=== PATIENT | female | born 1980 | race Caucasian/White ===

== ENCOUNTER → 2023-09-29 06:29 | Outpatient (CLI) | payer OTHER ==
[~2023-09-29 06:29] MED LIST: [UNRECOGNIZED DRUG - OTHER] PO
[2023-09-29 07:55] LABS: HEMATOCRIT 35.8 % (36.0-45.00); HEMOGLOBIN 12.4 g/dL (12.0-15.00); MEAN CELL VOLUME 96.6 fL (80.00-100.00); MEAN CORPUSCULAR HEMOGLOBIN 33.5 pg (27.00-32.0); MEAN CORPUSCULAR HGB CONC 34.7 g/dl (32.0-36.0); PLATELET COUNT 304 K/uL (150-450); RED BLOOD COUNT 3.71 M/uL (4.00-6.00); RED CELL DISTRIBUTION WIDTH 12.7 % (11.5-14.5)
[2023-09-29 09:03] LABS: ALBUMIN 3.7 gm/dL (3.4-5.0); BILIRUBIN TOTAL 0.22 mg/dL (0.3-1.2); CALCIUM 9.5 mg/dL (8.5-10.1); CHOL HDL RATIO 3.1 (0-5.0); CREATININE SERUM 0.64 mg/dL (0.55-1.02); GFR 101.76; GLOBULINA 3.3 G/DL (2.4-3.5); POTASSIUM 4.28 mEq/L (3.5-5.1); T4 TOTAL 10.74 UG/DL (4.8-13.9); TSH 0.761 uIU/mL (0.358-3.74)
== END | disposition home or self-care (01) ==
LOC: LAB 06:29
PROVIDERS: ATTEND Internal Medicine Gastroenterology
DX: K30 Functional dyspepsia (principal); Z12.11 Encounter for screening for malignant neoplasm of colon; K21.9 Gastro-esophageal reflux disease without esophagitis; Z13.228 Encounter for screening for other metabolic disorders; R10.13 Epigastric pain

== ENCOUNTER 2023-09-29 07:19 | Outpatient (CLI) | payer OTHER | END 2023-09-29 07:21 | disposition home or self-care (01) | LOC: SONOGRAMA 07:19 | PROVIDERS: ATTEND Internal Medicine Gastroenterology | DX: R10.13 Epigastric pain (principal) ==

== ENCOUNTER 2024-11-18 12:52 | Outpatient (CLI) | payer OTHER ==
[~2024-11-18 12:52] MED LIST changes: +NORFLEX100MG PO
== END 2024-11-18 12:59 | disposition home or self-care (01) ==
LOC: MRI 12:52
PROVIDERS: ATTEND Physical Medicine & Rehabilitation
DX: M54.42 Lumbago with sciatica, left side (principal)
CPT/HCPCS: 72148

== ENCOUNTER 2024-12-10 07:42 | Outpatient (CLI) | payer OTHER | END 2024-12-10 07:52 | disposition home or self-care (01) | LOC: MAMO-SONO 07:42 | PROVIDERS: ATTEND Obstetrics & Gynecology | DX: N60.11 Diffuse cystic mastopathy of right breast (principal) ==

== ENCOUNTER → 2024-12-10 08:28 | Outpatient (CLI) | payer OTHER ==
[2024-12-10 09:25] LABS: BASO % 0.7 % (0.1-1.2); EOS # 0.58 (0.04-0.54); EOS % 9.6 % (0.7-7.0); LYMPH # 1.88 (1.18-3.74); LYMPH % 31.0 % (19.3-53.1); MEAN PLATELET VOLUME 9.80 fl (9.4-12.4); MONO # 0.50 (0.24-0.82); MONO % 8.2 % (4.7-12.5); NEUT # 3.06 (1.56-6.13); NEUT % 50.3 % (34.0-71.1); RED CELL DISTRIBUTION WIDTH 12.4 % (11.6-14.4)
[2024-12-10 09:33] LABS: URINE APPEARANCE Clear; URINE BILIRRUBIN Negative (NEGATIVE); URINE BLOOD Negative; URINE COLOR Yellow; URINE GLUCOSE Negative (NEGATIVE); URINE KETONE Negative (NEGATIVE); URINE LEUKOCYTE Negative; URINE NITRATE Negative; URINE PROTEIN Negative (NEGATIVE); URINE UROBILINOGEN 0.2 E.U./dl
[2024-12-10 09:37] LABS: URINE BACTERIA 68.4 uL (0.0-1933); URINE EPITHELIAL CELLS 18.7 uL (0.0-38.8); URINE RBC 16.5 uL (0.0-20.8)
[2024-12-10 09:47] LABS: URINE CAST 0.73 uL (0.0-1.40); URINE WBC 1.6 uL (0.0-23.2)
[2024-12-10 09:51] LABS: INR < 0.93
[2024-12-10 10:16] LABS: ALT/SGPT 20.0 U/L (12-78); AST/SGOT 11.0 U/L (15-37); BILIRUBIN TOTAL 0.33 mg/dL (0.3-1.2); BUN CREA RATIO 20.0 (7.0-25.0); CREATININE SERUM 0.61 mg/dL (0.55-1.02); GFR 106.55; GLOBULINA 3.0 G/DL (2.4-3.5); GLUCOSE FASTING 94.0 mg/dL (65-100); OSMOLALITY SERUM 281.0 MOSM/KG (275-295); T4 FREE 1.09 NG/ML (0.76-1.46); TSH 0.552 uIU/mL (0.358-3.74)
== END | disposition home or self-care (01) ==
LOC: LAB 08:28
PROVIDERS: ATTEND Obstetrics & Gynecology
DX: N91.1 Secondary amenorrhea (principal); N60.11 Diffuse cystic mastopathy of right breast